=== PATIENT | female | born 1980 | race Caucasian/White ===

== ENCOUNTER 2017-03-18 13:01 | Emergency (ER) | payer MEDICARE ==
[2014-02-09 14:48] VITALS: BMI 32.9
[~2017-03-18 13:01] MED LIST: ALEVE220 MG PO; AMBIEN10 MG PO; IBUPROFEN200 MG PO; PERCOCET 10/3251 TA1 PO; SEROQUEL300 MG PO; TRAZODONE HCL300 MG PO; WELLBUTRIN XL150 M1 PO; XANAX2 MG PO
[2017-03-18 15:28] LABS: BASOPHILS 0.5 % (0-2); EOSINOPHILS 2.3 % (0-7); HEMOGLOBIN 10.4 g/dL (12-16); IMMATURE GRANULOCYTES 0.1 % (0-5); LYMPHOCYTES 23.4 % (15-50); MCH 29.4 pg (26.0-34.0); MCHC 31.5 g/dL (31.0-37.0); MCV 93.2 fL (80.0-100.0); MEAN PLATELET VOLUME 8.6 fL (7.4-10.4); MONOCYTES 9.5 % (2-11); NEUTROPHILS 64.2 % (40-80); PLATELET COUNT 328 10x3/uL (130-400); RBC 3.54 10x6/uL (4.00-5.40); RDW 13.7 % (11.5-14.5); WBC 7.8 10x3/uL (4.8-10.8)
[2017-03-18 15:45] LABS: ALBUMIN 3.3 g/dL (3.4-5.0); ALKALINE PHOSPHATASE 65 U/L (46-116); ALT (SGPT) 29 U/L (10-68); BILIRUBIN - TOTAL 0.23 mg/dL (0.2-1.3); CALC OSMOLALITY 281 mosm/kg (275-300); CALCIUM 8.6 mg/dL (8.5-10.1); CARBON DIOXIDE 25.1 mmol/L (21.0-32.0); CHLORIDE - SERUM 106 mmol/L (98-107); CREATININE - SERUM 0.6 mg/dL (0.6-1.3); GLUCOSE 83 mg/dL (74-106); POTASSIUM - SERUM 3.8 mmol/L (3.5-5.1); SODIUM 142 mmol/L (136-145); UREA NITROGEN 12 mg/dL (7-18); eGFR NON AFRICAN AMERICAN > 90 mL/min (90-120)
[2017-03-18 16:21] LABS: APPEARANCE CLOUDY (CLEAR); COLOR STRAW (YELLOW)
[2017-03-18 16:22] LABS: BILIRUBIN NEGATIVE (NEGATIVE); GLUCOSE NEGATIVE (NEGATIVE); KETONE NEGATIVE (NEGATIVE); LEUKOCYTE ESTERASE 2+ (NEGATIVE); NITRITE NEGATIVE (NEGATIVE); PROTEIN NEGATIVE (NEGATIVE); SPECIFIC GRAVITY 1.005 (1.005-1.020); UROBILINOGEN NORMAL (NORMAL)
[2017-03-18 16:23] LABS: HCG URINE NEGATIVE (NEGATIVE)
[2017-03-18 16:33] LABS: BACTERIA MODERATE /hpf (NONE SEEN); MUCUS <1+ /lpf (NONE SEEN); RED CELLS - URINE 0-5 /hpf (0-5); WHITE CELLS - URINE 25-50 /hpf (0-5)
== END 2017-03-18 18:52 | disposition home or self-care (01) ==
LOC: D.ER 13:01
PROVIDERS: Physician Assistant Medical
DX: N39.0 Urinary tract infection, site not specified (principal); D64.9 Anemia, unspecified; F17.200 Nicotine dependence, unspecified, uncomplicated

== ENCOUNTER 2017-10-19 05:53 | Emergency (ER) | payer MEDICARE ==
[2014-02-09 14:48] VITALS: BMI 32.9
== END 2017-10-19 06:49 | disposition home or self-care (01) ==
LOC: D.ER 05:53
DX: T78.40XA Allergy, unspecified, initial encounter (principal); X58.XXXA Exposure to other specified factors, initial encounter

== ENCOUNTER 2018-07-06 19:19 | Emergency (ER) | payer MEDICARE ==
[~2018-07-06] VITALS: Ht 167.6 cm; Wt 70.5 kg
[2018-07-06 19:24] VITALS: Ht 167.6 cm; Wt 70.5 kg
[2018-07-06] MEDS ORDERED: ZANAFLEX4 MG PO (21:36)
[2018-07-06] MEDS ORDERED: VOLTAREN75 MG PO (21:36)
[2018-07-06 22:33] VITALS: BP 130/73
== END 2018-07-06 22:34 | disposition home or self-care (01) ==
LOC: D.ER 19:19
DX: M62.830 Muscle spasm of back (principal); F17.200 Nicotine dependence, unspecified, uncomplicated

== ENCOUNTER 2019-01-22 19:38 | Emergency (ER) | payer MEDICARE ==
[~2019-01-22] VITALS: Ht 167.6 cm; Wt 68.2 kg
[~2019-01-22 19:38] MED LIST changes: +VOLTAREN75 MG PO; +ZANAFLEX4 MG PO
[2019-01-22 20:09] VITALS: BP 125/67; Ht 167.6 cm; Wt 68.2 kg
[2019-01-22] MEDS ORDERED: VOLTAREN75 MG PO (21:58)
== END 2019-01-22 22:23 | disposition home or self-care (01) ==
LOC: D.ER 19:38
DX: M54.5 Low back pain (principal); L90.5 Scar conditions and fibrosis of skin; F17.210 Nicotine dependence, cigarettes, uncomplicated

== ENCOUNTER 2019-06-21 15:30 | Emergency (ER) | payer MEDICARE ==
[~2019-06-21] VITALS: Ht 167.6 cm; Wt 65.9 kg
[2019-06-21 15:34] VITALS: Ht 167.6 cm; Wt 65.9 kg
[2019-06-21] MEDS ORDERED: NAPROSYN500 MG PO (16:36)
[2019-06-21 17:05] VITALS: BP 125/74
== END 2019-06-21 17:06 | disposition home or self-care (01) ==
LOC: D.ER 15:30
DX: M47.892 Other spondylosis, cervical region (principal); M47.895 Other spondylosis, thoracolumbar region

== ENCOUNTER 2019-09-03 13:43 | Emergency (ER) | payer MEDICARE ==
[~2019-09-03] VITALS: Ht 167.6 cm; Wt 68.2 kg
[~2019-09-03 13:43] MED LIST changes: +NAPROSYN500 MG PO
[2019-09-03 14:13] VITALS: BP 117/71; Ht 167.6 cm; Wt 68.2 kg
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
== END 2019-09-03 16:15 | disposition home or self-care (01) ==
LOC: D.ER 13:43
DX: M54.9 Dorsalgia, unspecified (principal)

== ENCOUNTER 2020-01-12 14:59 | Emergency (ER) | payer MEDICARE ==
[~2020-01-12] VITALS: Ht 167.6 cm; Wt 61.4 kg
[2020-01-12 15:53] VITALS: Ht 167.6 cm; Wt 61.4 kg
[2020-01-12 17:04] LABS: BASOPHILS 0.4 % (0-2); EOSINOPHILS 0 % (0-7); HEMATOCRIT 31.1 % (36.0-48.0); HEMOGLOBIN 8.9 g/dL (12-16); IMMATURE GRANULOCYTES 0.2 % (0-5); LYMPHOCYTES 10.8 % (15-50); MCH 21.9 pg (26.0-34.0); MCHC 28.6 g/dL (31.0-37.0); MCV 76.4 fL (80.0-100.0); MEAN PLATELET VOLUME 8.7 fL (7.4-10.4); MONOCYTES 4.4 % (2-11); NEUTROPHILS 84.2 % (40-80); PLATELET COUNT 339 10x3/uL (130-400); RBC 4.07 10x6/uL (4.00-5.40); RDW 18.5 % (11.5-14.5); WBC 10.8 10x3/uL (4.8-10.8)
[2020-01-12 18:38] LABS: HCG SERUM NEGATIVE (NEGATIVE)
[2020-01-12 18:40] LABS: CALC OSMOLALITY 268 mosm/kg (275-300); CALCIUM 8.3 mg/dL (8.5-10.1); CARBON DIOXIDE 26.5 mmol/L (21.0-32.0); CHLORIDE - SERUM 102 mmol/L (98-107); CREATININE - SERUM 0.5 mg/dL (0.6-1.3); GLUCOSE 108 mg/dL (74-106); POTASSIUM - SERUM 3.6 mmol/L (3.5-5.1); SODIUM 135 mmol/L (136-145); UREA NITROGEN 6 mg/dL (7-18); eGFR NON AFRICAN AMERICAN > 90 mL/min (90-120)
[2020-01-12 18:47] LABS: ALBUMIN 3.4 g/dL (3.4-5.0); ALKALINE PHOSPHATASE 64 U/L (30-120); ALT (SGPT) 21 U/L (10-68); AMYLASE - SERUM 36 U/L (25-115); BILIRUBIN - TOTAL 0.21 mg/dL (0.2-1.3); LIPASE 97 U/L (73-393); PROTEIN - SERUM 6.7 g/dL (6.4-8.2)
[2020-01-12 18:51] LABS: TROPONIN-I < 0.017 ng/mL (0.000-0.060)
[2020-01-12 20:13] LABS: BILIRUBIN NEGATIVE (NEGATIVE); GLUCOSE NEGATIVE (NEGATIVE); KETONE NEGATIVE (NEGATIVE); NITRITE NEGATIVE (NEGATIVE); SPECIFIC GRAVITY 1.005 (1.005-1.020); UROBILINOGEN NORMAL (NORMAL)
[2020-01-12 20:45] LABS: UDS - AMPHET NEGATIVE QUAL (NEGATIVE); UDS - BARB NEGATIVE QUAL (NEGATIVE); UDS - BENZO NEGATIVE QUAL (NEGATIVE); UDS - COCAINE NEGATIVE QUAL (NEGATIVE); UDS - OPIATE POSITIVE QUAL (NEGATIVE); UDS - PCP NEGATIVE QUAL (NEGATIVE); UDS - THC POSITIVE QUAL (NEGATIVE)
[2020-01-12] MEDS ORDERED: PROTONIX40 MG PO (21:03)
[2020-01-12] MEDS ORDERED: CARAFATE1 G PO (21:03)
[2020-01-12 22:12] VITALS: BP 122/78
== END 2020-01-12 22:12 | disposition home or self-care (01) ==
LOC: D.ER 14:59
PROVIDERS: Family Medicine
DX: K29.70 Gastritis, unspecified, without bleeding (principal); D64.9 Anemia, unspecified; R10.10 Upper abdominal pain, unspecified; Z98.84 Bariatric surgery status; R11.2 Nausea with vomiting, unspecified

== ENCOUNTER 2020-02-07 13:48 | Inpatient (IN) | payer MEDICARE ==
[~2020-02-07] VITALS: Ht 167.6 cm; Wt 67.0 kg
[~2020-02-07 13:48] MED LIST changes: +CARAFATE1 G PO; +PROTONIX40 MG PO
[2020-02-07 14:05] VITALS: BP 103/61
[2020-02-07 14:09] LABS: BASOPHILS 0.2 % (0-2); EOSINOPHILS 0.1 % (0-7); HEMOGLOBIN 8.6 g/dL (12-16); IMMATURE GRANULOCYTES 0.1 % (0-5); MCH 22.1 pg (26.0-34.0); MCHC 29.7 g/dL (31.0-37.0); MCV 74.6 fL (80.0-100.0); MEAN PLATELET VOLUME 8.4 fL (7.4-10.4); MONOCYTES 4.4 % (2-11); NEUTROPHILS 86.2 % (40-80); PLATELET COUNT 324 10x3/uL (130-400); RBC 3.89 10x6/uL (4.00-5.40); RDW 18.8 % (11.5-14.5); WBC 10.1 10x3/uL (4.8-10.8)
[2020-02-07 14:16] LABS: CALC OSMOLALITY 263 mosm/kg (275-300); CALCIUM 8.9 mg/dL (8.5-10.1); CARBON DIOXIDE 28.1 mmol/L (21.0-32.0); CHLORIDE - SERUM 101 mmol/L (98-107); CREATININE - SERUM 0.5 mg/dL (0.6-1.3); GLUCOSE 104 mg/dL (74-106); INR 0.94 (0.85-1.17); POTASSIUM - SERUM 3.7 mmol/L (3.5-5.1); PROTIME 12.6 SECONDS (11.6-15.0); SODIUM 133 mmol/L (136-145); UREA NITROGEN 8 mg/dL (7-18); eGFR NON AFRICAN AMERICAN > 90 mL/min (90-120)
[2020-02-07 14:22] LABS: ALBUMIN 3.2 g/dL (3.4-5.0); ALKALINE PHOSPHATASE 71 U/L (30-120); ALT (SGPT) 16 U/L (10-68); AMYLASE - SERUM 51 U/L (25-115); BILIRUBIN - TOTAL 0.12 mg/dL (0.2-1.3); LIPASE 107 U/L (73-393); PROTEIN - SERUM 6.7 g/dL (6.4-8.2)
--- NOTE | 2020-02-07 15:34 | NUR ---
CALLED REPORT TO TYSON WHITTINGTON
[2020-02-07] MEDS ORDERED: GABAPENTIN300 MG PO (16:28)
[2020-02-07] MEDS ORDERED: PROZAC20 MG PO (16:28)
[2020-02-07] MEDS ORDERED: REMERON15 MG PO (16:29)
[2020-02-07] MEDS ORDERED: PROTONIX40 MG PO (16:30)
[2020-02-07 17:18] VITALS: BP 96/58; BMI 23.9
--- NOTE | 2020-02-07 19:00 | NUR ---
BEDSIDE REPORT RECEIVED AND CARE OF PT ASSUMED. PT LYING IN MID TA'S POSITION WATCHING TV. LEFT PORT PATENT WITH NS INFUSING AT 125 ML/HR, AND ZOFRAN INFUSING AT 4.7 ML/HR. IV TO RIGHT FA PATENT WITH PROTONIX INFUSING AT 10 ML/HR. WILL MONITOR FOR NEEDS.
[2020-02-07 20:00] VITALS: BP 98/61
--- NOTE | 2020-02-07 20:32 | NUR ---
HS MEDICATIONS GIVE TO INCLUDE MORPHINE PER REQUEST FOR PAIN, PER PRN ORDER. WILL MONITOR FOR EFFECTIVENESS.
[2020-02-07 22:03] LABS: HEMATOCRIT 25.7 % (36.0-48.0); HEMOGLOBIN 7.7 g/dL (12-16)
--- NOTE | 2020-02-07 22:15 | NUR ---
GAVE GI COCKTAIL...HAD TO WAIT TO GET FROM VENEER PATCHER...THEN RECEIVED FROM ER CHARGE NURSE FROM ER [facility]BAR[facility].
--- NOTE | 2020-02-07 23:16 | NUR ---
PAGED PHOTOGRAPHIC COLORIST TO ADVISE OF MOST RECENT LABS / H&H. NO NEW ORDERS.
[2020-02-08] VITALS: BP 105/57
[2020-02-08 04:00] VITALS: BP 110/58
[2020-02-08 07:16] LABS: BASOPHILS 0.2 % (0-2); EOSINOPHILS 1.7 % (0-7); HEMATOCRIT 24.9 % (36.0-48.0); IMMATURE GRANULOCYTES 0.2 % (0-5); LYMPHOCYTES 22.8 % (15-50); MCH 21.9 pg (26.0-34.0); MCHC 29.3 g/dL (31.0-37.0); MCV 74.8 fL (80.0-100.0); MONOCYTES 7.8 % (2-11); NEUTROPHILS 67.3 % (40-80); PLATELET COUNT 285 10x3/uL (130-400); RBC 3.33 10x6/uL (4.00-5.40); RDW 19.1 % (11.5-14.5)
[2020-02-08 07:19] LABS: WBC 5.2 10x3/uL (4.8-10.8)
[2020-02-08 07:21] LABS: HEMOGLOBIN 7.3 g/dL (12-16)
[2020-02-08 07:32] LABS: ALBUMIN 2.5 g/dL (3.4-5.0); ALKALINE PHOSPHATASE 110 U/L (30-120); ALT (SGPT) 56 U/L (10-68); BILIRUBIN - TOTAL 0.16 mg/dL (0.2-1.3); CALC OSMOLALITY 275 mosm/kg (275-300); CALCIUM 7.8 mg/dL (8.5-10.1); CARBON DIOXIDE 26.9 mmol/L (21.0-32.0); CHLORIDE - SERUM 107 mmol/L (98-107); CREATININE - SERUM 0.6 mg/dL (0.6-1.3); GLUCOSE 75 mg/dL (74-106); POTASSIUM - SERUM 3.6 mmol/L (3.5-5.1); PROTEIN - SERUM 5.5 g/dL (6.4-8.2); SODIUM 140 mmol/L (136-145); UREA NITROGEN 7 mg/dL (7-18); eGFR NON AFRICAN AMERICAN > 90 mL/min (90-120)
--- NOTE | 2020-02-08 07:41 | NUR ---
CALLED [facility] TO INFORM OF CRITICAL HGB 7.3 AWAITING ORDERS
[2020-02-08 09:13] VITALS: BP 78/45
--- NOTE | 2020-02-08 09:20 | NUR ---
FIRST UNIT PRBC'S STARTED, NO S/S OF ADVERSE REACTION AT THIS TIME
--- NOTE | 2020-02-08 11:06 | NUR ---
PT ALERT AND ORIENTED. TALKING ON PHONE. GAVE ME A THUMBS UP WHEN I ASKED IF SHE WAS GOOD. CL IN REACH. BLOOD INFUSING.
--- NOTE | 2020-02-08 12:30 | NUR ---
SECOND UNIT PRBC'S STARTED, NO S/S OF ADVERSE REACTION AT THIS TIME
[2020-02-08 17:23] VITALS: BP 100/61
[2020-02-08 18:23] VITALS: BP 100/61
--- NOTE | 2020-02-08 19:00 | NUR ---
BEDSIDE REPORT RECEIVED AND CARE OF PATIENT ASSUMED. PT SITTING UP IN BED ON THE PHONE. LEFT IP ACCESSED WITH NS INFUSING AT 125 ML/HR; ZOFRAN INFUSING AT 4.7 ML/HR; AND PROTONIX INFUSING AT 10. WILL MONITOR FOR NEEDS.
[2020-02-08 20:00] VITALS: BP 102/67
--- NOTE | 2020-02-08 20:20 | NUR ---
PT SHOWERED AND ALL LINENS CHANGED.
--- NOTE | 2020-02-08 21:07 | NUR ---
HS MEDICATIONS GIVEN TO INCLUDE NEURONTIN AND BENADRYL PER REQUEST FOR SLEEP AND ITCHING.
--- NOTE | 2020-02-08 22:33 | NUR ---
GAVE MORPHINE 4 MG PER REQUEST FOR PAIN. WILL MONITOR FOR EFFECTIVENESS.
[2020-02-08 22:50] LABS: HEMATOCRIT 29.5 % (36.0-48.0)
[2020-02-08 22:51] LABS: HEMOGLOBIN 8.9 g/dL (12-16)
[2020-02-09] VITALS: BP 101/63; BP 98/58
[2020-02-09 06:43] LABS: CALC OSMOLALITY 264 mosm/kg (275-300); CALCIUM 7.5 mg/dL (8.5-10.1); CARBON DIOXIDE 24.9 mmol/L (21.0-32.0); CHLORIDE - SERUM 106 mmol/L (98-107); CREATININE - SERUM 0.6 mg/dL (0.6-1.3); GLUCOSE 75 mg/dL (74-106); POTASSIUM - SERUM 3.4 mmol/L (3.5-5.1); SODIUM 134 mmol/L (136-145); UREA NITROGEN 8 mg/dL (7-18); eGFR NON AFRICAN AMERICAN > 90 mL/min (90-120)
--- NOTE | 2020-02-09 07:15 | NUR ---
REC'D IN BED AWAKE AND ALERT. RESP EVEN AND UNLABORED WITH NO DISTRESS NOTED. CAN EXPRESS NEEDS AND WANTS. NO C/O NOTED OR VOICED. ASSESSMENT COMPLETED. C/L IN REACH AT BEDSIDE.
[2020-02-09 07:57] LABS: BASOPHILS 0.4 % (0-2); EOSINOPHILS 2.6 % (0-7); IMMATURE GRANULOCYTES 0.2 % (0-5); LYMPHOCYTES 21.2 % (15-50); MCHC 29.6 g/dL (31.0-37.0); MEAN PLATELET VOLUME 8.9 fL (7.4-10.4); MONOCYTES 9.1 % (2-11); NEUTROPHILS 66.5 % (40-80); PLATELET COUNT 228 10x3/uL (130-400); RDW 19.6 % (11.5-14.5); WBC 5.7 10x3/uL (4.8-10.8)
[2020-02-09 08:00] VITALS: BP 110/50
[2020-02-09 08:02] LABS: HEMATOCRIT 36.8 % (36.0-48.0); HEMOGLOBIN 10.9 g/dL (12-16); MCV 77.6 fL (80.0-100.0); RBC 4.74 10x6/uL (4.00-5.40)
[2020-02-09 08:51] LABS: HCG SERUM NEGATIVE (NEGATIVE)
--- NOTE | 2020-02-09 11:54 | NUR ---
WAS MEDICATED WITH MOPRHINE PER ORDERS FOR C/O PAIN. C/L IN REACH AT BEDSIDE.
[2020-02-09 12:00] VITALS: BP 108/60
[2020-02-09 14:40] VITALS: Ht 167.6 cm; Wt 67.0 kg
--- NOTE | 2020-02-09 14:42 | NUR ---
WAS MEDICATED WITH BENDRYL AT THIS TIME FOR C/O ITCHING. C/L IN REACH AT BEDSIDE.
[2020-02-09 16:00] VITALS: BP 100/57
--- NOTE | 2020-02-09 16:44 | NUR ---
WAS MEDICATED WITH MORPHINE AT THIS TIME FOR C/O PAIN. C/L IN REACH AT BEDSIDE.
--- NOTE | 2020-02-09 18:45 | NUR ---
I have reviewed this patient and I concur with the Shift Assessment completed by the Licensed Practical Nurse today this shift.
--- NOTE | 2020-02-09 19:00 | NUR ---
BEDSIDE REPORT RECEIVED AND CARE OF PT ASSUMED. PT LYING IN LOW TA'S POSITION TALKING ON THE PHONE. LEFT IV ACCESSED WITH NS INFUSING AT 125 ML/HR, AND ZOFRAN INFUSING AT 4.7 ML/HR. DISCONTINUED PROTONIX DRIP PER ORDER.
--- NOTE | 2020-02-09 19:30 | NUR ---
GAVE SANDWICH TRAY AND PUDDING FOR HS SNACK.
[2020-02-09 20:00] VITALS: BP 112/62
--- NOTE | 2020-02-09 20:48 | NUR ---
HS MEDICATIONS GIVEN TO INCLUDE BENADRYL IVP PER REQUEST FOR ITCHING, MORPHINE 4 MG IVP PER REQUEST FOR PAIN, AND GABAPENTIN PO PER REQUEST SLEEP AID. WILL CONTINUE TO MONITOR FOR NEEDS.
[2020-02-10] VITALS: BP 115/63
[2020-02-10 04:00] VITALS: BP 100/60
[2020-02-10 06:23] LABS: CALC OSMOLALITY 278 mosm/kg (275-300); CALCIUM 7.8 mg/dL (8.5-10.1); CARBON DIOXIDE 26.8 mmol/L (21.0-32.0); CHLORIDE - SERUM 110 mmol/L (98-107); CREATININE - SERUM 0.6 mg/dL (0.6-1.3); GLUCOSE 87 mg/dL (74-106); POTASSIUM - SERUM 3.6 mmol/L (3.5-5.1); SODIUM 141 mmol/L (136-145); UREA NITROGEN 9 mg/dL (7-18); eGFR NON AFRICAN AMERICAN > 90 mL/min (90-120)
[2020-02-10 06:24] LABS: BASOPHILS 0.8 % (0-2); EOSINOPHILS 3.4 % (0-7); IMMATURE GRANULOCYTES 0.2 % (0-5); LYMPHOCYTES 29.2 % (15-50); MCH 23.2 pg (26.0-34.0); MCHC 30.2 g/dL (31.0-37.0); MCV 76.8 fL (80.0-100.0); MEAN PLATELET VOLUME 8.7 fL (7.4-10.4); MONOCYTES 9.5 % (2-11); NEUTROPHILS 56.9 % (40-80); PLATELET COUNT 271 10x3/uL (130-400); RDW 19.5 % (11.5-14.5); WBC 5.3 10x3/uL (4.8-10.8)
[2020-02-10 06:25] LABS: HEMATOCRIT 28.1 % (36.0-48.0); HEMOGLOBIN 8.5 g/dL (12-16); RBC 3.66 10x6/uL (4.00-5.40)
[2020-02-10 08:00] VITALS: BP 119/70
--- NOTE | 2020-02-10 09:20 | MORECARE ---
CASE MANAGEMENT DISCHARGE SUMMARY PATIENT: EMORY CORNELL UNIT: [id number] ADM DATE: 02/07/20 AGE: 39 : 84 SEX: F ROOM/BED: D.2222 AUTHOR: MELVIN STANLEY PHYSICIAN: REFERRING PHYSICIAN: FADI MARTEL MD DATE OF SERVICE: 02/10/20 Discharge Plan Patient Name: EMORY CORNELL [facility] [facility] 1980 Planned Disposition: Home Anticipated Discharge Date: Discharge Date: Expected LOS: Initial Reviewer: [email or web address] Initial Review Date: 02/07/2020 Generated: 02/10/20 10:20 am DCPIA - Discharge Planning Initial Assessment Updated by [email or web address]: Tegan Tapia on 02/10/20 9:19 am * Is the patient Alert and Oriented? Yes * PCP NONE * [facility]acy [facility] * Preadmission Environment Home with Family * ADLs Independent * Community resources currently utilized None * Additional services required to return to the preadmission environment? No * Can the patient safely return to the preadmission environment? Yes * Has this patient been hospitalized within the prior 30 days at any hospital? No Coverage Notice Reviewer: [id number] - Tegan Tapia Notice Issued Date-Time: 02/10/2020 9:19 Notice Type: IM Discharge Notice Notice Delivered To: Patient Relationship to Patient: Stone Finisher Name: Delivery Method: HAND - Hand Delivered Linda Days: Prior Verbal Notification: Recipient Understood Notice: Yes Recipient Signature: Yes Med Rec Note Co-signed by Attending: Coverage Notice Comment: Patient Name: EMORY CORNELL Page [phone] at 0920 All edits/amendments must be made on the electronic document DICTATION DATE: 02/10/20919 REGIONAL DEDICATED TRUCK DRIVER: VICTORINO 02/10/20919 RPT#: [id number] DC DATE: STATUS: ADM IN [facility] [address] [place] [address] END OF REPORT
--- NOTE | 2020-02-10 09:27 | MORECARE ---
CASE MANAGEMENT DISCHARGE SUMMARY PATIENT: EMORY CORNELL UNIT: [id number] ADM DATE: 02/07/20 AGE: 39 : 84 SEX: F ROOM/BED: D.2222 AUTHOR: LIZETH,DOC PHYSICIAN: REFERRING PHYSICIAN: FADI MARTEL MD DATE OF SERVICE: 02/10/20 Discharge Plan Patient Name: EMORY CORNELL Facility: [facility]:[place] : 1980 Planned Disposition: Home Anticipated Discharge Date: Discharge Date: Expected LOS: Initial Reviewer: [email or web address] Initial Review Date: 02/07/2020 Generated: 02/10/20 10:26 am Comments DCP- Discharge Planning Updated by [email or web address]: Tegan Tapia on 02/10/20 8:[address] Patient Name: EMORY CORNELL Admission Status: ER Accout number: [id number] Admission Date: 02-07-2020 : 1980 Admission Diagnosis: Attending: LAST Current LOS: 3 Anticipated DC Date: Planned Disposition: Home Primary Insurance: MEDICARE A & B Discharge Planning Comments: CM met with patient at bedside after explaining CM role and obtaining verbal consent. CM discussed availability / needs of home health, REHAB and medical equipment. PATIENT DENIES NEED FOR ADDITIONAL SERVICES. IMM SIGNED. SHE IS CALLING A RIDE, IF SHE DOESN'T FIND ONE WE WILL CALL [facility] TO TRANSPORT HER. CM TO FOLLOW AND ASSIST NEEDED. Otr Tanker Truck Driver: Tegan Tapia DCPIA - Discharge Planning Initial Assessment Updated by [email or web address]: Tegan Tapia on 02/10/20 9:19 am * Is the patient Alert and Oriented? Yes * PCP NONE * [facility] * Preadmission Environment Home with Family * ADLs Independent * Community resources currently utilized None * Additional services required to return to the preadmission environment? No * Can the patient safely return to the preadmission environment? Yes * Has this patient been hospitalized within the prior 30 days at any hospital? No Coverage Notice Reviewer: [id number] - Tegan Tapia Notice Issued Date-Time: 02/10/2020 9:19 Notice Type: IM Discharge Notice Notice Delivered To: Patient Relationship to Patient: Director Payer Name: Delivery Method: HAND - Hand Delivered Linda Days: Prior Verbal Notification: Recipient Understood Notice: Yes Recipient Signature: Yes Med Rec Note Co-signed by Attending: Coverage Notice Comment: Last DP export: 02/10/20 8:20 am Patient Name: ANETA OCTOBER Page [id number] at 09 All edits/amendments must be made on the electronic document DICTATION DATE: 02/10/20926 SOLAR SALES ASSOCIATE: VICTORINO 02/10/20926 RPT#: [id number] DC DATE: STATUS: ADM IN [address] [place] [address] END OF REPORT
--- NOTE | 2020-02-10 12:16 | NUR ---
PT DC HOME, WENT OVER DC INSTRUCTIONS AND FOLLOW UP. PORT REMOVED BY RN. Gabriel RIOS. ALL QUESTIONS ANSWERED.
--- NOTE | 2020-02-11 09:35 | MORECARE ---
CASE MANAGEMENT DISCHARGE SUMMARY PATIENT: ANETAEMORY UNIT: [id number] ADM DATE: 02/07/20 AGE: 39 : 84 SEX: F ROOM/BED: D.2222 AUTHOR: LIZETH,DOC PHYSICIAN: REFERRING PHYSICIAN: FADI MARTEL MD DATE OF SERVICE: 02/11/20 Discharge Plan Patient Name: EMORY CORNELL Facility: [facility]:[place] : 1980 Planned Disposition: Home Anticipated Discharge Date: Discharge Date: 02/10/2020 Expected LOS: Initial Reviewer: [email or web address] Initial Review Date: 02/07/2020 Generated: 02/11/20 10:35 am Comments DCP- Discharge Planning Updated by [email or web address]: Tegan Tapia on 02/10/20 8:[address] Patient Name: EMORY CORNELL Admission Status: ER Accout number: [id number] Admission Date: 02-07-2020 : 1980 Admission Diagnosis: Attending: LAST Current LOS: 3 Anticipated DC Date: Planned Disposition: Home Primary Insurance: MEDICARE A & B Discharge Planning Comments: CM met with patient at bedside after explaining CM role and obtaining verbal consent. CM discussed availability / needs of home health, REHAB and medical equipment. PATIENT DENIES NEED FOR ADDITIONAL SERVICES. IMM SIGNED. SHE IS CALLING A RIDE, IF SHE DOESN'T FIND ONE WE WILL CALL [facility] TO TRANSPORT HER. CM TO FOLLOW AND ASSIST NEEDED. Ribbon Hanking Machine Operator: Tegan Tapia DCPIA - Discharge Planning Initial Assessment Updated by [email or web address]: Tegan Tapia on 02/10/20 9:19 am * Is the patient Alert and Oriented? Yes * PCP NONE * [facility]acy [facility] * Preadmission Environment Home with Family * ADLs Independent * Community resources currently utilized None * Additional services required to return to the preadmission environment? No * Can the patient safely return to the preadmission environment? Yes * Has this patient been hospitalized within the prior 30 days at any hospital? No Coverage Notice Reviewer: [id number] - Tegan Tapia Notice Issued Date-Time: 02/10/2020 9:19 Notice Type: IM Discharge Notice Notice Delivered To: Patient Relationship to Patient: Fire Prevention Engineer Name: Delivery Method: HAND - Hand Delivered Linda Days: Prior Verbal Notification: Recipient Understood Notice: Yes Recipient Signature: Yes Med Rec Note Co-signed by Attending: Coverage Notice Comment: Last DP export: 02/10/20 8:27 am Patient Name: ANETA OCTOBER Page 13978 at 0935 All edits/amendments must be made on the electronic document DICTATION DATE: 02/11/20934 FILER METAL PATTERNS: VICTORINO 02/11/2035 RPT#: [id number] DC DATE:02/10/20 STATUS: DIS IN [facility] [address] [place] [address] END OF REPORT
--- NOTE | 2020-02-11 12:21 | NUR ---
FAMILY HEAR TO PICK OF BLUE BAG CONTAINING BEAUTY PRODUCTS AND PERSONEL BELONGINGS.CALL FROM OCTOBER TO CONFIRM HER MOM IS AT ER TO CHIEF ACCOUNTING OFFICER BAG.
== END 2020-02-10 12:38 | disposition home or self-care (01) | DRG 379 ==
LOC: D.ER 13:48 → D.MS 14:43
PROVIDERS: Anesthesiology; Family Medicine; Internal Medicine Gastroenterology; Legal Medicine; ADMIT Emergency Medicine; ATTEND Emergency Medicine
PROC: 0DB68ZX Excision of Stomach, Via Natural or Artificial Opening Endoscopic, Diagnostic (ICD-10-PCS; 2020-02-09)
PROC: 0DB48ZX Excision of Esophagogastric Junction, Via Natural or Artificial Opening Endoscopic, Diagnostic (ICD-10-PCS; principal; 2020-02-09 07:31)
DX: K25.4 Chronic or unspecified gastric ulcer with hemorrhage (principal); K29.41 Chronic atrophic gastritis with bleeding; D64.9 Anemia, unspecified; F32.9 Major depressive disorder, single episode, unspecified; K21.0 Gastro-esophageal reflux disease with esophagitis; Z98.84 Bariatric surgery status